=== PATIENT | male | born 1950 | race Caucasian/White ===

== ENCOUNTER 2019-10-13 08:46 | Inpatient (IN) ==
[2019-10-13] MEDS ORDERED: cloNIDine 0.1 MG TABLET PO PRN (08:51)
[2019-10-13] MEDS ORDERED: HEPARIN 5,000 UNIT/1 ML VIAL IV ONE (08:55)
[2019-10-13] MEDS ORDERED: cloNIDine 0.1 MG TABLET PO ONE (09:00)
[2019-10-13] MEDS ORDERED: HEPARIN DRIP 25,000 UNITS/500 ML PREMIX IV SCH (09:00)
[2019-10-13] MEDS ORDERED: METOPROLOL TARTRATE 25 MG TABLET PO ONE (09:00)
[2019-10-13 09:09] LABS: Basophils % 0.3 % (0.0-0.8); Eosinophils # 0.3 10*3/uL (0.0-0.87); Eosinophils % 4.2 % (0.00-10.9); Hematocrit 31.9 VOL% (42.0-52.0); Hemoglobin 9.8 GM/DL (14.0-18.0); Immature Granulocytes % 0.7 %; Immature Granulocytes Absolute 0.05 #; Lymphocytes # 1.2 10*3/uL (1.4-4.0); Lymphocytes % 17.6 % (21.2-54.2); Mean Corpuscular HGB Conc 30.7 GM/DL (32-36); Mean Corpuscular Volume 102.6 FL (87-102); Mean Platelet Volume 9.3 FL (9.6-12.0); Monocytes % 10.1 % (1.7-12.7); Neutrophils % 67.1 % (38.7-73.9); Platelet Count 318 T/CUMM (130-400); Red Blood Count 3.11 MC/CUMM (3.8-5.5); Red Cell Distribution Width 15.9 % (9.3-17.3); White Blood Count 6.7 T/CUMM (4-12)
[2019-10-13 09:34] LABS: Eosinophils 2 % (0-10); Hypochromasia Slight; Lymphocytes 15 % (20-55); Platelet Estimate Adequate; Segmented Neutrophils 72 % (50-85); Total Cells Counted 100
[2019-10-13 09:36] LABS: Blood Urea Nitrogen 9 MG/DL (7-18); Calcium 8.8 MG/DL (8.5-10.1); Estimated Glom Filtration Rate 92 ML/MIN; Glucose 152 MG/DL (74-106); Osmolality,Calculated 271.1 MOS/KG (273-304); Troponin I < 0.015 NG/ML (0.00-0.045)
[2019-10-13] MEDS ORDERED: MAGNESIUM SULF RIDER 2 GM in PREMIX 1 EACH IV PRN (10:19)
[2019-10-13] MEDS ORDERED: MORPHINE 4 MG/1 ML VIAL IV PRN (10:19)
[2019-10-13] MEDS ORDERED: diphenhydrAMINE CAP 25 MG CAPSULE PO PRN (10:19)
[2019-10-13] MEDS ORDERED: ZALEPLON 5 MG CAPSULE PO PRN (10:19)
[2019-10-13] MEDS ORDERED: MAGNESIUM SULF RIDER 4 GM in PREMIX 1 EACH IV PRN (10:19)
[2019-10-13] MEDS ORDERED: ONDANSETRON 4 MG/2 ML VIAL IV PRN (10:19)
[2019-10-13] MEDS ORDERED: ACETAMINOPHEN 325 MG TABLET PO PRN (10:19)
[2019-10-13] MEDS ORDERED: hydrALAZINE 20 MG/1 ML VIAL IV PRN (10:19)
[2019-10-13 10:26] LABS: INR 1.1; PT Patient Result 11.3 SECS (9.8-11.9); Partial Thromboplastin Time 28.2 SECS (23.9-33.8)
[2019-10-13] MEDS ORDERED: GLUCAGON 1 MG VIAL IM PRN ×2 (11:07)
[2019-10-13] MEDS ORDERED: DEXTROSE 50% 25 GM/50 ML VIAL IV PRN (11:07)
[2019-10-13] MEDS ORDERED: MAGNESIUM HYDROXIDE SUSP 30 ML UDCUP PO PRN (11:42)
[2019-10-13] MEDS ORDERED: DEXTROSE 10% 250 ML BAG IV PRN (12:40)
[2019-10-13] MEDS ORDERED: ALBUTEROL 2.5 MG/3 ML NEB RESP TX SCH (13:00)
[2019-10-13] MEDS: POTASSIUM CHLORIDE 20 MEQ TABLET PO PRN ×2 (13:00→17:12)
[2019-10-13 13:48] LABS: Basophils % 0.5 % (0.0-0.8); Eosinophils # 0.3 10*3/uL (0.0-0.87); Eosinophils % 4.6 % (0.00-10.9); Hematocrit 32.7 VOL% (42.0-52.0); Immature Granulocytes % 1.1 %; Immature Granulocytes Absolute 0.07 #; Lymphocytes # 1.6 10*3/uL (1.4-4.0); Lymphocytes % 23.8 % (21.2-54.2); Mean Corpuscular HGB Conc 30.6 GM/DL (32-36); Mean Corpuscular Volume 101.6 FL (87-102); Mean Platelet Volume 9.4 FL (9.6-12.0); Monocytes % 10.9 % (1.7-12.7); Neutrophils % 59.1 % (38.7-73.9); Platelet Count 322 T/CUMM (130-400); Red Blood Count 3.22 MC/CUMM (3.8-5.5); Red Cell Distribution Width 15.6 % (9.3-17.3); White Blood Count 6.5 T/CUMM (4-12)
[2019-10-13 13:59] LABS: INR 1.1; PT Patient Result 11.4 SECS (9.8-11.9); Partial Thromboplastin Time 65.5 SECS (23.9-33.8)
[2019-10-13] MEDS: INSULIN REGULAR 100 UNIT/ML SUBCUT SCH ×3 (14:14→20:47)
[2019-10-13 14:22] LABS: Band Neutrophils 6 % (0-10); Eosinophils 2 % (0-10); Lymphocytes 23 % (20-55); Segmented Neutrophils 63 % (50-85); Total Cells Counted 100
[2019-10-13 14:23] LABS: Anisocytosis 1+; Macrocytosis 1+; Platelet Estimate Normal; Polychromasia Few; Reactive Lymphocytes Slight
[2019-10-13] MEDS: HEPARIN DRIP 25,000 UNITS/500 ML PREMIX IV SCH (14:25)
[2019-10-13] MEDS ORDERED: SODIUM CHLORIDE 0.45% 1,000 ML IV SCH (14:30)
[2019-10-13] MEDS: SODIUM CHLORIDE 0.9% 1,000 ML IV SCH ×2 (14:51→22:30)
[2019-10-13] MEDS ORDERED: metFORMIN 500 MG TABLET PO SCH (16:30)
[2019-10-13] MEDS ORDERED: ALBUTEROL 2.5 MG/3 ML NEB RESP TX PRN (16:42)
[2019-10-13] MEDS: METOPROLOL TARTRATE 25 MG TABLET PO SCH (17:12)
[2019-10-13 18:42] LABS: Hematocrit 29.5 VOL% (42.0-52.0)
[2019-10-14] MEDS: METOPROLOL TARTRATE 25 MG TABLET PO SCH ×3 (00:58→18:15)
[2019-10-14] MEDS: HEPARIN DRIP 25,000 UNITS/500 ML PREMIX IV SCH (01:34)
[2019-10-14 04:16] LABS: Basophils % 0.6 % (0.0-0.8); Eosinophils # 0.3 10*3/uL (0.0-0.87); Eosinophils % 6.2 % (0.00-10.9); Hematocrit 29.6 VOL% (42.0-52.0); Hemoglobin 9.2 GM/DL (14.0-18.0); Immature Granulocytes % 0.8 %; Immature Granulocytes Absolute 0.04 #; Lymphocytes # 1.2 10*3/uL (1.4-4.0); Lymphocytes % 24.2 % (21.2-54.2); Mean Corpuscular HGB Conc 31.1 GM/DL (32-36); Mean Corpuscular Volume 100.7 FL (87-102); Mean Platelet Volume 9.1 FL (9.6-12.0); Monocytes % 13.2 % (1.7-12.7); Platelet Count 309 T/CUMM (130-400); Red Blood Count 2.94 MC/CUMM (3.8-5.5); Red Cell Distribution Width 15.5 % (9.3-17.3)
[2019-10-14 04:40] LABS: Alanine Aminotransferase 16 U/L (16-61); Albumin 1.9 G/DL (3.4-5.0); Alkaline Phosphatase 87 U/L (45-117); Aspartate Amino Transferase 10 U/L (0-37); Bilirubin,Total < 0.39 MG/DL (0.2-1.0); Blood Urea Nitrogen 7 MG/DL (7-18); Calcium 8.2 MG/DL (8.5-10.1); Estimated Glom Filtration Rate 117 ML/MIN; Glucose 131 MG/DL (74-106); Osmolality,Calculated 272.8 MOS/KG (273-304); Total Protein 6.5 G/DL (6.4-8.3)
[2019-10-14 04:53] LABS: Hypochromasia Slight; Macrocytosis 1+
[2019-10-14 04:54] LABS: PT Patient Result 10.9 SECS (9.8-11.9); Partial Thromboplastin Time 42.1 SECS (23.9-33.8); Platelet Estimate Normal
[2019-10-14] MEDS: SODIUM CHLORIDE 0.9% 1,000 ML IV SCH (06:05)
[2019-10-14] MEDS: INSULIN REGULAR 100 UNIT/ML SUBCUT SCH ×4 (08:06→23:11)
[2019-10-14] MEDS: APIXABAN 5 MG TABLET PO SCH ×2 (08:12→21:34)
[2019-10-14] MEDS: ASPIRIN EC 81 MG TABLET PO SCH (08:16)
[2019-10-14] MEDS: PANTOPRAZOLE 40 MG TABLET PO SCH (08:17)
[2019-10-14] MEDS: DICLOFENAC SODIUM 75 MG TABLET PO SCH (08:18)
[2019-10-14] MEDS: MONTELUKAST 10 MG TABLET PO SCH (08:18)
[2019-10-14] MEDS ORDERED: PSEUDOEPHEDRINE GUAIFENESIN PO SCH (09:00)
[2019-10-14] MEDS ORDERED: ASPIRIN EC 81 MG TABLET PO SCH (09:00)
[2019-10-14] MEDS ORDERED: metFORMIN 500 MG TABLET PO SCH (09:00)
[2019-10-14] MEDS ORDERED: INSULIN REGULAR 100 UNIT/ML SUBCUT SCH (12:00)
[2019-10-14 14:13] LABS: Hematocrit 29.9 VOL% (42.0-52.0); Hemoglobin 9.1 GM/DL (14.0-18.0)
[2019-10-15] MEDS: METOPROLOL TARTRATE 25 MG TABLET PO SCH (01:31)
[2019-10-15 05:10] LABS: Basophils % 0.7 % (0.0-0.8); Eosinophils # 0.3 10*3/uL (0.0-0.87); Eosinophils % 5.5 % (0.00-10.9); Hemoglobin 9.3 GM/DL (14.0-18.0); Immature Granulocytes % 0.7 %; Immature Granulocytes Absolute 0.03 #; Lymphocytes # 1.1 10*3/uL (1.4-4.0); Lymphocytes % 23.2 % (21.2-54.2); Mean Platelet Volume 9.3 FL (9.6-12.0); Monocytes % 13.7 % (1.7-12.7); Neutrophils % 56.2 % (38.7-73.9); Platelet Count 351 T/CUMM (130-400); Red Blood Count 3.01 MC/CUMM (3.8-5.5); Red Cell Distribution Width 15.7 % (9.3-17.3); White Blood Count 4.5 T/CUMM (4-12)
[2019-10-15 05:29] LABS: Calcium 8.4 MG/DL (8.5-10.1); Osmolality,Calculated 273.8 MOS/KG (273-304)
[2019-10-15 06:28] LABS: Band Neutrophils 5 % (0-10); Eosinophils 5 % (0-10); Lymphocytes 16 % (20-55); Myelocytes 1 %; Platelet Estimate Adequate; Segmented Neutrophils 65 % (50-85); Total Cells Counted 100
[2019-10-15 06:29] LABS: Hypochromasia 1+; Macrocytosis Slight
[2019-10-15] MEDS: DICLOFENAC SODIUM 75 MG TABLET PO SCH (08:40)
[2019-10-15] MEDS: APIXABAN 5 MG TABLET PO SCH (08:40)
[2019-10-15] MEDS: PANTOPRAZOLE 40 MG TABLET PO SCH (08:41)
[2019-10-15] MEDS: ASPIRIN EC 81 MG TABLET PO SCH (08:41)
[2019-10-15] MEDS: MONTELUKAST 10 MG TABLET PO SCH (08:41)
[2019-10-15 08:46] VITALS: BP 106/51
[2019-10-15] MEDS: INSULIN REGULAR 100 UNIT/ML SUBCUT SCH (08:46)
[2019-10-15] MEDS ORDERED: METOPROLOL TARTRATE 25 MG TABLET PO SCH (09:00)
[2019-10-15] MEDS ORDERED: PSEUDOEPHEDRINE GUAIFENESIN PO SCH (09:00)
[2019-10-21] MEDS ORDERED: APIXABAN 5 MG TABLET PO SCH (09:00)
== END 2019-10-15 09:17 | disposition home or self-care (01) | DRG 176 ==
LOC: N.CVR 08:49 → N.ICU 16:05 → N.TELES 10-14 11:32
PROVIDERS: ADMIT Internal Medicine Interventional Cardiology; ATTEND Internal Medicine Interventional Cardiology